=== PATIENT | male | born 1980 | race African-American/Black ===

== ENCOUNTER 2024-06-13 15:23 | Outpatient (REF) | payer MEDICAID, SELFPAY ==
[2024-06-14 02:21] LABS: CT PCR NOT DETECTED (Not Detect.); NG PCR NOT DETECTED (Not Detect.)
== END 2024-06-13 15:24 | disposition home or self-care (01) ==
LOC: HO.CHCLNP 15:23
PROVIDERS: Visit Provider Internal Medicine
DX: Z20.2 Contact with and (suspected) exposure to infections with a predominantly sexual mode of transmission (principal)
CPT/HCPCS: 87491; 87591

== ENCOUNTER 2024-06-14 09:20 | Outpatient (REF) | payer MEDICAID, SELFPAY ==
[2024-06-14 14:00] LABS: MANUAL DIFF FLAG NO
[2024-06-14 14:06] LABS: Basophils Percent Auto 0.7 % (0-2); Eosinophils Absolute Auto 0.1 X10*3/uL (0.0-0.4); Eosinophils Percent Auto 1.3 % (0-4); Hematocrit 40.9 % (42.0-52.0); Hemoglobin 13.3 g/dl (14.0-18.0); Imm Gran Abs Auto 0.01 X10*3/uL (0.00-0.03); Imm Gran Pct Auto 0.2 % (0.0-0.4); Lymphocytes Absolute Auto 1.4 X10*3/uL (1.2-4.9); Lymphocytes Percent Auto 32.1 % (20-40); Mean Corpuscular HGB Conc 32.5 g/dl (31.0-36.0); Mean Corpuscular Volume 86.1 fL (80.0-98.0); Mean Platelet Volume 9.9 fL (9.4-12.4); Monocytes Absolute Auto 0.4 X10*3/uL (0.1-1.2); Monocytes Percent Auto 7.8 % (2-11); Neutrophils Absolute Auto 2.6 x10*3/uL (2.0-8.3); Neutrophils Percent Auto 57.9 % (45-73); Platelet Count 384 X10*3/uL (160-400); Red Blood Count 4.75 X10*6/uL (4.60-5.80); Red Cell Distribution Width 14.8 % (11.0-16.0); White Blood Count 4.5 X10*3/uL (4.8-10.8)
[2024-06-14 14:26] LABS: Alanine Aminotransferase 17 U/L (0-40); Albumin Level 4.3 g/dL (3.5-5.0); Alkaline Phosphatase 52 U/L (39-117); Anion Gap 10 (12-20); Aspartate Amino Transferase 19 U/L (5-37); Bilirubin Total 0.5 mg/dL (0.0-1.0); Blood Urea Nitrogen 14 mg/dL (9-16); Calcium 9.4 mg/dL (8.4-10.2); Carbon Dioxide 29 mmol/L (22-29); Chloride 107 mmol/L (96-108); Cholesterol 184 mg/dL (<200); Estimated Glomerular Filt Rate > 60; Glucose Random 91 mg/dL (60-115); HDL Cholesterol 56 mg/dL (>40); LDL Cholesterol Calculated 119 mg/dL (<100); Potassium 3.9 mmol/L (3.3-5.1); Sodium 142 mmol/L (135-145); Total Protein 7.9 g/dL (6.5-8.0); Triglycerides 45 mg/dL (<150)
[2024-06-14 14:32] LABS: Estimated Average Glucose 105 mg/dL; Hemoglobin A1c % 5.3 % (<6.0)
[2024-06-14 14:42] LABS: TSH reflex Free T4 0.82 uIU/mL (0.32-4.0)
[2024-06-16 03:51] LABS: Syphilis Screen Nonreactive (Nonreactive)
[2024-06-16 04:19] LABS: HIV AB/AG Nonreactive (Nonreactive); HIV Num 1 0.06 S/CO (0.00-0.99); ~HepC Num1 0.13 S/CO (0.00-0.79); ~Hepatitis C Antibody Nonreactive (Nonreactive)
== END 2024-06-14 09:21 | disposition home or self-care (01) ==
LOC: HO.CHCLDS 09:20
PROVIDERS: Visit Provider Internal Medicine
DX: I10 Essential (primary) hypertension (principal); Z20.2 Contact with and (suspected) exposure to infections with a predominantly sexual mode of transmission
CPT/HCPCS: 36415; 80053; 80061; 83036; 84443; 85025; 86780; 86803; 87389

== ENCOUNTER 2025-05-05 08:18 | Outpatient (REF) | payer MEDICAID, SELFPAY ==
--- OUTSIDE RECORDS SUMMARY | 2025-05-02 09:30 | XMS_ITS | Encounter Summary ---
Author Organization [employer] Address [address] [facility] [address] [place] [address] Care Team Providers Care Websphere Process Server Developer Name Role Phone Vinny Conrad MD Primary Care Prov ider Encounter Details Date Type Department Care Team (Late st Contact Info) Description 05/02/2025 9:30 AM EDT Telemedicine [facility] [address] [place], [place] [phone] Vinny Conrad MD [address] [place] [address] Primary hypertension (Primary Dx) Social History Tobacco Use Types Packs/Day Years Used Date Smoking Tobacco: Never Smokeless Tobacco: Never Alcohol Use Standard Drinks/Week Comments Yes 0 (1 standard drink = 0.6 oz pure alcohol) 1-2 beers 1-2 times a month socially Depression Answer Date Recorded Patient Health Questionnaire-9 Score 0 01/30/2025 Patient Health Questionnaire-9 Score 0 01/30/2025 Last PHQ-9: Questionnaire Data Not on file 0 01/30/2025 Housing Stability Answer Date Recorded What is your housing situation today? I have teresa waddell 05/02/[address] you li ve. Do you have problems with any of the following? None of the above 05/02/2025 Food Insecurity Answer Date Recorded Within the past 12 months, y ou worried that your food would run out before you got money to buy more: Never True 05/02/2025 Within the past 12 months,th e food you bought just didn't last and you didn't have enough money to get more: Never True Transportation Answer Date Recorded In the past 12 months, has l ack of transportation kept you from medical appts, meetings, work or from getting things needed for daily living? No 05/02/2025 Utilities Answer Date Recorded In the past 12 months, has t he electric, gas, oil or water company threatened to shut off services in your home? No 05/02/2025 Depression Answer Date Recorded Patient Health Questionnaire-2 Score 0 01/30/2025 Internet Access Answer Date Recorded Internet Access Q1 Yes 05/02/2025 Internet Access Q2 Not on file 05/02/2025 Sex and Gender Information Value Date Recorded Sex Assigned at Male 01/18/2024 11:39 AM EDT Legal Sex Male 11:37 AM EDT Gender Identity Male 01/18/2024 11:39 AM EDT Sexual Orientation Don't know 01/18/2024 11 :39 AM EDT documented as of this encounter Last Filed Vital Signs Vital Sign Reading Time Taken Comments Blood Pressure 121/77 05/02/2025 9:41 AM EDT Pulse 74 05/02/2025 9:41 AM EDT Temperature - - Respiratory Rate - - Oxygen Saturation - - Inhaled Oxygen Concentration - - Weight - - Height - - Body Mass Index - - documented in this encounter Progress Notes * Vinny Beard MD - 05/02/2025 9:30 AM EDT Subjective Patient ID: Vinayak Nevarez is a 45 y.o. male who presents for No chief complaint on file.. Hypertension This is a chronic problem. The problem is controlled. Pertinent negatives include no chest pain, headaches, palpitations, peripheral edema or shortness of breath. Review of Systems Respiratory: Negative for shortness of breath. Cardiovascular: Negative for chest pain and palpitations. Neurological: Negative for headaches. Objective Physical Exam Neurological: General: No focal deficit present. Mental Status: He is oriented to person, place, and time. Psychiatric: Mood and Affect: Mood normal. Behavior: Behavior normal. Assessment/Plan Problem List Items Addressed This Visit Primary hypertension - Primary Controlled, keep current therapy, reinforced low sodium diet and exercise as tolerated, keep bp log, follow up in 3 months with new labs documented in this encounter Miscellaneous Notes * Assessment & Plan Note - Vinny Beard MD - 05/02/2025 9:48 AM EDTAssociated Problem(s): Primary hypertension Controlled, keep current therapy, reinforced low sodium diet and exercise as tolerated, keep bp log, follow up in 3 months with new labs documented in this encounter Plan of Treatment Upcoming Encounters Date Type Department Care Team (Late st Contact Info) Description 07/29/2025 10:45 AM EDT Office Visit [facility] [address] [place] [address] Vinny Conrad MD [address] [place] [address] Scheduled Orders Name Type Priority Associated Diagnoses Orde r Schedule Comprehensive Metabolic Panel Lab Routine Primary hypertension Expected: 05/02/2025 (Approximate), Expires: 05/02/2026 Lipid Panel, Standard Lab Routine Primary hypertension Expected: 05/02/2025 (Approximate), Expires: 05/02/2026 documented as of this encounter Visit Diagnoses Diagnosis Primary hypertension- Primary Unspecified essential hypertension documented in this encounter Additional Health Concerns Assessment Noted Time PHQ-9 Depression Total Score: 0 01/31/20 25 9:07 AM EDT documented as of this encounter Care Teams Websphere Process Server Developer Relationship Specialty Start Date End Date Vinny Conrad MD [address] [place] [address] PCP - General Internal Medicine 04/03/24 documented as of this encounter
[2025-05-05 15:34] LABS: Alanine Aminotransferase 19 U/L (0-40); Albumin Level 4.2 g/dL (3.5-5.0); Alkaline Phosphatase 48 U/L (39-117); Anion Gap 9 (12-20); Aspartate Amino Transferase 25 U/L (5-37); Bilirubin Total 0.4 mg/dL (0.0-1.0); Blood Urea Nitrogen 16 mg/dL (9-16); Carbon Dioxide 30 mmol/L (22-29); Chloride 107 mmol/L (96-108); Cholesterol 177 mg/dL (<200); Estimated Glomerular Filt Rate > 60; Glucose Random 92 mg/dL (60-115); HDL Cholesterol 49 mg/dL (>40); LDL Cholesterol Calculated 118 mg/dL (<100); Sodium 142 mmol/L (135-145); Total Protein 7.5 g/dL (6.5-8.0); Triglycerides 54 mg/dL (<150)
== END 2025-05-05 08:19 | disposition home or self-care (01) ==
LOC: HO.CHCLDS 08:18
PROVIDERS: Visit Provider Internal Medicine
DX: I10 Essential (primary) hypertension (principal)
CPT/HCPCS: 36415; 80053; 80061

== ENCOUNTER 2025-10-23 08:38 | Outpatient (REF) | payer MEDICAID, SELFPAY ==
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
[2025-10-23 15:06] LABS: MANUAL DIFF FLAG NO
[2025-10-23 15:21] LABS: Hematocrit 40.5 % (42.0-52.0); Hemoglobin 13.0 g/dl (14.0-18.0); Imm Gran Abs Auto 0.02 X10*3/uL (0.00-0.03); Imm Gran Pct Auto 0.4 % (0.0-0.4); Lymphocytes Absolute Auto 2.2 X10*3/uL (1.2-4.9); Mean Corpuscular HGB Conc 32.1 g/dl (31.0-36.0); Mean Corpuscular Hemoglobin 27.8 pg (27.0-33.0); Mean Corpuscular Volume 86.7 fL (80.0-98.0); NRBC Abs Auto 0.000 X10*3/uL (0.0-0.012); NRBC Pct Auto 0.0 /100WBC (0.0-0.2); Platelet Count 439 X10*3/uL (160-400); Red Blood Count 4.67 X10*6/uL (4.60-5.80); White Blood Count 5.5 X10*3/uL (4.8-10.8)
[2025-10-23 16:02] LABS: Alanine Aminotransferase 19 U/L (0-40); Albumin Level 4.4 g/dL (3.5-5.0); Alkaline Phosphatase 47 U/L (39-117); Anion Gap 10 (12-20); Aspartate Amino Transferase 35 U/L (5-37); Blood Urea Nitrogen 17 mg/dL (9-16); Calcium 9.1 mg/dL (8.4-10.2); Carbon Dioxide 27 mmol/L (22-29); Chloride 105 mmol/L (96-108); Cholesterol 188 mg/dL (<200); Estimated Glomerular Filt Rate > 60; HDL Cholesterol 48 mg/dL (>40); Potassium 3.6 mmol/L (3.3-5.1); Sodium 138 mmol/L (135-145); Total Protein 7.8 g/dL (6.5-8.0); Triglycerides 72 mg/dL (<150)
== END 2025-10-23 08:39 | disposition home or self-care (01) ==
LOC: HO.CHCLDS 08:38
PROVIDERS: Visit Provider Internal Medicine
DX: I10 Essential (primary) hypertension (principal)
CPT/HCPCS: 36415; 80053; 80061; 83036; 84443; 85025